=== PATIENT | female | born 1960 | race Caucasian/White ===

== ENCOUNTER → 2016-03-31 | Outpatient (CLI) | payer BC | END | disposition home or self-care (01) | LOC: C.PAPS 10:26 | PROVIDERS: ATTEND Obstetrics & Gynecology | DX: Z01.419 Encounter for gynecological examination (general) (routine) without abnormal findings (principal) ==

== ENCOUNTER → 2016-08-08 | Outpatient (CLI) | payer BC ==
--- NOTE | 2016-08-08 14:55 | MAMMOGRAPHY REPORT ---
BILATERAL DIGITAL SCREENING MAMMOGRAM TOMOSYNTHESIS WITH CAD: 08/08/2016 CLINICAL HISTORY: Routine screening. Patient has no complaints. TECHNIQUE: Breast tomosynthesis in addition to standard 2D mammography was performed. Current study was also evaluated with a Computer Aided Detection (CAD) system. COMPARISON: Comparison is made to exams dated: 08/05/2015 mammogram, 08/07/2014 ultrasound, 08/07/2014 mammogram, 07/30/2014 mammogram, 07/29/2013 mammogram, and 07/26/2012 mammogram - [facility] nter. BREAST COMPOSITION: The tissue of both breasts is heterogeneously dense, which may obscure small mas ses. FINDINGS: The parenchymal pattern is similar to prior mammograms. No developing mass, architectural distortion or cluster of suspicious microcalcifications is seen in either breast. IMPRESSION: ACR BI-RADS CATEGORY 2: BENIGN There is no mammographic evidence of malignancy. A 1 year screening mammogram is recommended. The pa tient will receive written notification of the results. Approximately 10% of breast cancers are not detected with mammography. A negative mammographic report should not delay biopsy if a clinically suggestive mass is present. Swetha Weiss M.D. ay/:08/08/2016 12:23:30 Production Team Member: Gina Issa, [facility] letter sent: Normal 1/2 BI-RADS Code: ACR BI-RADS Category 2: Benign
== END | disposition home or self-care (01) ==
LOC: C.MAMM 10:07
PROVIDERS: ATTEND Obstetrics & Gynecology
DX: Z12.31 Encounter for screening mammogram for malignant neoplasm of breast (principal)

== ENCOUNTER → 2017-03-03 | Outpatient (CLI) | payer OTHER ==
--- NOTE | 2017-03-03 08:15 | DIAGNOSTIC IMAGING REPORT ---
CALVARIUM 2 VIEWS CLINICAL HISTORY: MRI screening. Remote surgery. FINDINGS: AP and lateral views of the calvarium are obtained. No prior studies are available for comparison at the time of dictation. The skeletal structures are well mineralized. The calvarium appears intact. Numerous surgical clips are present along the right convexity. The bony orbits are grossly intact. Apparent nasal sinuses and mastoid air cells are clear as imaged. IMPRESSION: Numerous surgical clips are present along the right convexity. Electronically signed by: Erlin Carlisle M.D. 03/03/2017 8:14 AM Dictated Date/Time: 03/03/2017 8:13 AM
== END | disposition home or self-care (01) ==
LOC: C.MRI 07:38
PROVIDERS: ATTEND Physical Medicine & Rehabilitation Sports Medicine
DX: M25.562 Pain in left knee (principal)

== ENCOUNTER → 2017-03-10 | Outpatient (CLI) | payer OTHER | END | disposition home or self-care (01) | LOC: C.RAD 10:39 | DX: M25.562 Pain in left knee (principal) ==

== ENCOUNTER → 2017-03-30 | Day surgery (SDC) | payer OTHER ==
[2017-03-17 07:44] VITALS: Ht 152.4 cm; Wt 63.6 kg
[~2017-03-30] VITALS: Ht 152.4 cm; Wt 63.6 kg
[~2017-03-30] MED LIST: ATROPINE SULFATE 0.1 MG/ML 5ML SYR IV PRN; CALC600T9 PO; CEFAZOLIN 1000MG IV PUSH 7.5 ML IV SCH; DEXAMETHASONE SOD INJ 4 MG/ML VIAL ONE; EpHEDrine SULFATE INJ 50 MG/ML AMP IV PRN; FENTANYL CITRATE INJ 50 MCG/1 ML 2 ML VIAL ONE; HYDROCODONE/ACETAMIN 5/325MG TAB PO PRN; HYDROmorphone INJ 1 MG/ML SYR IV PRN; LACTATED RINGER'S 1000ML 1,000 ML IV SCH; LIDOCAINE HCL 2% 2 ML VIAL (20MG/ML) ONE; LIDOCAINE/EPINEPHRINE 1% INJ 50 ML VIAL ONE; MIDAZOLAM HCL 1 MG/ML 2ML VIAL ONE; ONDANSETRON INJ 2 MG/ML 2 ML VIAL IV PRN; ONDANSETRON INJ 2 MG/ML 2 ML VIAL ONE; PROMETHAZINE HCL INJ 12.5 MG in SODIUM CHLORIDE 0.9% 50ML 50 ML IV PRN; PROPOFOL IV EMULSION 10 MG/ML 20 ML VIAL IV ONE; SODIUM CHLORIDE 0.9% 1000ML 1,000 ML IV SCH; VITAMIN D PO
--- NOTE | 2017-03-30 10:10 | History & Physical Bridge Note ---
H&P Re-Evaluation Bridge Note: I have examined the patient, reviewed the History & Physical and in the interval since the performance of the History & Physical I have noted the following changes of clinical significance: No changes noted
--- NOTE | 2017-03-30 11:54 | [facility] Post Operative Brief Note ---
Immediate Operative Summary Operative Date Mar 30, 2017. Pre-Operative Diagnosis Left knee medial meniscus tear with medial compartment chondrosis Post-Operative Diagnosis Same as preop Procedure(s) Performed Left Knee Arthroscopy, Partial Medial Meniscectomy, Chondroplasty Surgeon Dr. Curran Barbed Wire Machine Operator Surgeon(s) Albin Goodson PA-C, adrienne ser ms3 Estimated Blood Loss 5 mL Findings Consistent with Post-Op Diagnosis Specimens None Drains None Anesthesia Type General Complication(s) none Disposition Accompanied Pt To Recovery: no Disposition: Recovery Room / PACU
--- NOTE | 2017-03-30 12:10 | [facility] Operative Report ---
Operative Report Operative Date Mar 30, 2017. Pre-Operative Diagnosis Left knee medial meniscus tear with medial compartment chondrosis Post-Operative Diagnosis Same as preop Procedure(s) Performed Left Knee Arthroscopy, Partial Medial Meniscectomy, Chondroplasty Surgeon Dr. Curran Bricklayer Paving Brick Surgeon(s) Albin Goodson PA-C, adrienne ser ms3 Estimated Blood Loss 5 mL Findings Medial meniscus tear. Medial compartment chondrosis. Specimens None Anesthesia laryngeal mask Complication(s) None Disposition Recovery Room / PACU Indications Patient's 56 her female with left medial knee pain refractory to nonsurgical methods of management. She cannot have an MRI. A CT scan suggests medial meniscal injury. X-rays are normal. Description of Procedure Informed consent was obtained. The patient identified as Rosy Watson. She identified the operative site as the left knee which I marked with my initials. A preoperative surgical timeout was performed. Appropriate dose of IV antibiotics was given. She was taken to the operating room positioned supine on the operating room table. The laryngeal mask anesthetic was administered. The examination under anesthesia revealed intact cruciate and collateral ligaments no swelling and full range of motion 2/0/130. A lateral post was used for stressing the knee. No tourniquet was applied. The leg was prepped and draped in usual sterile fashion. 1% lidocaine with epinephrine was injected into the fat pad portal sites and knee joint preoperatively. DVT prophylaxis intraoperatively with foot pumps. Postoperatively with early ambulation and aspirin. Inferolateral viewing portal superior lateral outflow portal and inferomedial working portals were established. Diagnostic arthroscopy was performed. The medial and lateral gutters trochlea and suprapatellar pouch were normal. There was fissuring and grade 1 softening median ridge of the patella otherwise negative. The retropatellar fat pad and ligamentum mucosum were resected. The lateral compartment was tight. Grade 1 chondrosis lateral tibial plateau. Lateral femoral condyle and Posterior lateral compartment normal. Cruciates normal. I could not gain access to the posterior medial compartment. Medial tibial plateau showed grade 1 changes. There was a radial tear in the body of the medial meniscus back to the meniscal capsular junction. This was addressed with basket forceps and motorized shaver back to a stable balanced and well comport rim the meniscal roots were intact. This debrided the meniscus back to the meniscal capsular junction. There was a large area of chondrosis grade 2-4 involving the medial femoral condyle from the distal extent of the patellofemoral articulation anterior aspect of the tibiofemoral articulation heading posteriorly. There were large flaps of unstable cartilage which were debrided. These were completely detached held only on the periphery. This revealed a area 12 cm of full-thickness chondral defect. Her fracture not indicated for multiple reasons including surrounding cartilage is abnormal absence of medial meniscus and age. The aureliano on through the knee to pickup loose debris. The instruments removed and the portals were closed with 4-0 nylon. A soft sterile dressing was applied. There were no specimens or call locations. Counts are correct in the case. Blood loss was minimal. At the conclusion operations both patient's informed of my findings in detail postoperative instructions were given. She will be rehabilitated according to the arthroscopic partial medial meniscectomy protocol. She may progress weightbearing as tolerated. I attest to the content of the Intraoperative Record and any orders documented therein. Any exceptions are noted below.
--- NOTE | 2017-03-30 12:16 | Medical Student: [facility] ---
Immediate Operative Summary Operative Date Mar 30, 2017. Pre-Operative Diagnosis Possible left medial meniscal tear Post-Operative Diagnosis Left medial meniscal tear, chondrosis of medial compartment of the L knee Procedure(s) Performed Arthroscopy, partial medial meniscectomy, and chondroplasty of the left knee Surgeon Dr. Curran Insurance Processing Clerk Surgeon(s) Albin Goodson PA-C, and Princess Dinero, MS3 Estimated Blood Loss 5cc Findings Consistent with post-op diagnosis Specimens No specimens were obtained. Drains None Anesthesia General Complication(s) None Disposition Recovery Room / PACU
--- NOTE | 2017-03-30 12:17 | Discharge Instructions-SurgCtr ---
Discharge Instructions Date of Service Mar 30, 2017. Visit Reason for Visit: Left Knee Medial Meniscus Tear Discharge Discharge Diagnosis / Problem: Left knee s/p arthroscopy, partial medial meniscectomy, and chondroplasty Discharge Goals Goal(s): Decrease discomfort, Improve function, Increase independence Activity Recommendations Activity Limitations: as noted below Lifting Limitations: gradually increase as tolerated Exercise/Sports Limitations: until after follow-up appointment Shower/Bathe: may shower/bathe in 3 days Driving or Machine Use: resume 3 days after discharge Weightbearing Status: Left weightbearing (as tolerated) Anesthesia . Post Anesthesia Instructions: If you have had General Anesthesia or IV Sedation: * Do not drive today. * Resume driving when surgeon permits. * Do not make important decisions or sign legal documents today. * Call surgeon for: 1. Temperature elevations greater than 101 degrees F. 2. Uncontrollable pain. 3. Excessive bleeding. 4. Persistent nausea and vomiting. 5. Medication intolerance (nausea, vomiting or rash). * For nausea and vomiting use only clear liquids such as: tea, soda, bouillon until nausea subsides, then gradually increase diet as tolerated. * If you have any concerns or questions, call your surgeon's office. If physician is unavailable and it is an emergency, call 911 or go to the nearest emergency room. . Instructions / Follow-Up Instructions / Follow-Up The following are instructions to follow after your Arthroscopic Knee Surgery. ACTIVITY RECOMMENDATIONS: * Minimize activity until your first visit after surgery. * No excessive walking, jogging, sports or laboring. * Return to activity is individualized. Most patients are able to return to every day activities within one month. * Return to sports or intensive labor usually occurs at 2-3 months. * Driving is not permitted until at least your first postoperative visit at a minimum. Please ask your doctor when it is safe to resume driving. If you have an automatic vehicle and your left leg has been operated on, then you may begin driving as soon as you are comfortable and can drive safely. SCHOOL/WORK RECOMMENDATIONS: * You may return to sedentary work when you are feeling more comfortable. This is usually 3-7 days after surgery. * Expect increased discomfort with increased activity. Continue to elevate and ice the leg as much as possible. MEDICATIONS: * You will have a prescription for pain medication and an anti-inflammatory medication after surgery. * Use the pain medication for severe pain and the anti-inflammatory for less severe pain. Once the pain medication has run out, try to use the anti-inflammatory medication. If this is not effective, contact the office for assistance. * The pain medication may cause nausea, constipation and drowsiness. You should see how they affect you before driving or similar activity. * The anti-inflammatory medication may cause stomach upset and bleeding. If this occurs let your doctor know immediately . * Take a stool softener like Colace or a laxative like Senokot to prevent constipation. DIET: * Resume previous diet. SPECIAL CARE: ICE: * You will need to use ice bags or gel packs. Do not apply ice directly to the skin. Use a thin dressing or julio shirt between the skin and ice bag. Apply ice for 20-30 minutes and repeat every 2-4 hours. This is especially important for the first 7-10 days after surgery. Once the pain improves, use ice as needed. ELEVATION: * Keep your leg elevated at or above the level of your heart as much as possible. * Expect some increased discomfort and swelling if you are standing for any length of time. * When lying down, avoid placing anything under your knee. Rather, prop your leg up by placing several pillows under your heel or calf. DRESSING: * Your dressing will be changed at your first therapy appointment approximately 4-5 days after surgery. Band-aids, tape strips or gauze may be applied. You may then change your dressing daily. * Reapply dressing followed by the Mak wrap or Tubi-bareback rider stockinet. * Always wash your hands prior to touching the incision area. * Once the stitches are removed, you may leave the wound open to air or cover with an Mak wrap or Tubi-bareback rider stockinet. * If you have been given a white elastic stocking (ROSENDO hose), wear as much as possible for the first 1-3 weeks depending on swelling. * Expect some bloody drainage for the first few days after surgery. * Leave the tape strips, if present, in place for 5-7 days. * Band-aids and gauze may be changed daily. CRUTCHES: * You will need to use crutches after surgery. * You may gradually progress to full weight bearing as tolerated and wean off the crutches unless otherwise advised. * Your therapist can provide assistance weaning off crutches. * Patients who have a microfracture done may need to be toe-touch weight- bearing for 4-6 weeks. BATHING: * You may shower or sponge-bathe immediately after surgery. * The dressing will need to be covered with a plastic bag or plastic wrap until the dressing is changed on the fourth or fifth day after surgery. * Once the dressing has been changed on the fourth or fifth day after surgery, you may shower and get the incision wet. * Wash with regular soap and water. * Do not bathe (submerge the incision), soak, swim or use a hot tub until the incision is completely healed over with normal skin and the doctor has given the OK to proceed. * There is no need to apply any ointments, powders or salves to your incision. * Do not apply alcohol or hydrogen peroxide directly to the incision. * Diluted peroxide (50:50 mixture with sterile saline) may be used to clean dried blood from around the incision area. BRACE: * Bracing is generally not needed after routine Arthroscopic Knee surgery. THERAPY: * You will begin therapy four or five days after surgery. * Organized therapy with the therapist is important for the first 4-6 weeks after surgery. During that time you will attend therapy 1-3 times per week. * You will also need to do daily exercises for range of motion and strength as instructed. PROBLEMS/QUESTIONS: * If you have any problems such as severe pain, numbness, tingling or high fevers or if you have any questions, please contact the office at [phone]. * It is not uncommon to have some numbness and tingling after the surgery especially if you have had a nerve block done. This should gradually improve over the first 1- 2 days. If this persists longer or worsens please contact the office. FOLLOW UP VISIT: * If not already scheduled, please call the office at to schedule a follow-up appointment for 10 days, 6 weeks and 3 months after surgery. Diet Recommendations Home Diet: resume previous diet Procedures Procedures Performed: Left Knee Arthroscopy, Partial Medial Meniscectomy, Chondroplasty Pending Studies Studies pending at discharge: no Medical Emergencies . Who to Call and When: Medical Emergencies: If at any time you feel your situation is an emergency, please call 911 immediately. . Non-Emergent Contact Non-Emergency issues call your: Primary Care Provider, Surgeon Call Non-Emergent contact if: temperature is above 101, wound has increased drainage, wound has increased redness, wound has increased pain, you have any medication questions . . "Provider Documentation" section prepared by Albin Goodson PA-C. . [place] Drug Monitoring Program Search Results: no issues identified
[2017-03-30] MEDS: FENTANYL CITRATE INJ 50 MCG/1 ML 2 ML VIAL IV PRN ×3 (12:20→12:33)
--- NOTE | 2017-03-30 12:32 | [facility] Operative Report ---
Operative Report Operative Date Mar 30, 2017. Pre-Operative Diagnosis Left knee medial meniscus tear with medial compartment chondrosis Post-Operative Diagnosis Left knee same as preop Procedure(s) Performed Left Knee Arthroscopy, Partial Medial Meniscectomy, Chondroplasty Surgeon Dr. Curran Inspector Machine Cut Glass Surgeon(s) Albin Goodson PA-C, adrienne ser ms3 Estimated Blood Loss 5 mL Findings left knee medial meniscal tear, chondral injury medial femoral condyle Specimens None Drains None Anesthesia Type General Complication(s) none Disposition no Recovery Room / PACU Indications This 56-year-old white female presented the office with complaints of left knee pain. She had tried conservative care measures without improvement. Patient elected to proceed with surgical intervention after being educated about potential risks and outcomes. Preoperative imaging was obtained. Description of Procedure Patient was taken to the operating room where she was given local anesthesia and general anesthesia. She was prepped and draped in usual sterile fashion. Please see Dr. Curran's operative report for specifics of the procedure. I was present for the entire case from initial patient positioning through final wound closure. Assistance was provided in patient positioning, arthroscopy, and final wound closure. Patient was taken to the recovery room in satisfactory condition. I attest to the content of the Intraoperative Record and any orders documented therein. Any exceptions are noted below.
[2017-03-30 12:54] VITALS: TEMP 36.4
--- NOTE | 2017-03-30 13:19 | Anesthesia Progress Nt - [facility] ---
Anesthesia Post Op Note Date & Time Mar 30, 2017 at 13:19 Vital Signs Pain Intensity: 0.0 Vital Signs Past 12 Hours Date Time Temp Pulse Resp B/P (MAP) Pulse Ox O2 Delivery O2 Flow Rate FiO2 03/30/17 12:54 36.4 87 18 154/86 (108) 94 Room Air 03/30/17 12:47 154/90 03/30/17 12:46 82 11 93 03/30/17 12:46 78 11 03/30/17 12:45 161/102 03/30/17 12:45 161/102 03/30/17 12:44 87 16 94 03/30/17 12:44 87 16 94 03/30/17 12:44 87 16 03/30/17 12:44 87 16 03/30/17 12:41 36.5 97 Room Air 03/30/17 12:40 165/100 03/30/17 12:40 165/100 03/30/17 12:39 95 16 03/30/17 12:39 97 16 99 03/30/17 12:39 95 16 03/30/17 12:39 97 16 99 03/30/17 12:38 155/88 03/30/17 12:37 67 14 100 03/30/17 12:37 72 14 03/30/17 12:35 154/100 03/30/17 12:32 85 19 03/30/17 12:32 83 19 100 03/30/17 12:30 149/93 03/30/17 12:27 68 16 03/30/17 12:27 67 16 100 03/30/17 12:26 157/91 03/30/17 12:22 74 18 03/30/17 12:22 73 18 100 03/30/17 12:20 167/78 03/30/17 12:17 81 12 03/30/17 12:17 82 12 100 03/30/17 12:16 81 17 03/30/17 12:16 83 17 100 03/30/17 12:15 146/92 03/30/17 12:11 80 22 100 03/30/17 12:11 79 22 03/30/17 12:10 153/90 03/30/17 12:08 139/86 03/30/17 12:07 130/101 03/30/17 12:06 36.3 95 16 139/86 100 Mask 7 03/30/17 09:26 36.6 78 16 148/84 (105) 99 Room Air Notes Mental Status: alert / awake / arousable, participated in evaluation Pt Amnestic to Procedure: Yes Nausea / Vomiting: adequately controlled Pain: adequately controlled Airway Patency, RR, SpO2: stable & adequate BP & HR: stable & adequate Hydration State: stable & adequate Anesthetic Complications: no major complications apparent
[2017-03-30 13:22] VITALS: BP 155/89; PULSE 88; O2SAT 95
--- NOTE | 2017-04-03 07:39 | EDITING REQUIRED CODING QUERY ---
MENISCUS TEAR To promote full compliance with coding requirements relating to patient care physician participation is requested in all cases of medical billing coder uncertainty. Please assist us with the question(s) below: Please specify the type of Meniscus Tear by placing an "X" within the parenthesis (). If other please document type. ( x) Current Injury ( ) Old Injury ( ) Other: (Please Specify) Thank you Catherine Bonilla
== END | disposition home or self-care (01) ==
LOC: X.SURG 09:11
PROVIDERS: ATTEND Physical Medicine & Rehabilitation Sports Medicine
DX: S83.242A Other tear of medial meniscus, current injury, left knee, initial encounter (principal); X58.XXXA Exposure to other specified factors, initial encounter; Z98.890 Other specified postprocedural states

== ENCOUNTER → 2017-04-20 | Outpatient (CLI) | payer OTHER ==
[~2017-04-20] MED LIST changes: -ATROPINE SULFATE 0.1 MG/ML 5ML SYR IV PRN; -CEFAZOLIN 1000MG IV PUSH 7.5 ML IV SCH; -DEXAMETHASONE SOD INJ 4 MG/ML VIAL ONE; -EpHEDrine SULFATE INJ 50 MG/ML AMP IV PRN; -FENTANYL CITRATE INJ 50 MCG/1 ML 2 ML VIAL ONE; -HYDROCODONE/ACETAMIN 5/325MG TAB PO PRN; -HYDROmorphone INJ 1 MG/ML SYR IV PRN; -LACTATED RINGER'S 1000ML 1,000 ML IV SCH; -LIDOCAINE HCL 2% 2 ML VIAL (20MG/ML) ONE; -LIDOCAINE/EPINEPHRINE 1% INJ 50 ML VIAL ONE; -MIDAZOLAM HCL 1 MG/ML 2ML VIAL ONE; -ONDANSETRON INJ 2 MG/ML 2 ML VIAL IV PRN; -ONDANSETRON INJ 2 MG/ML 2 ML VIAL ONE; -PROMETHAZINE HCL INJ 12.5 MG in SODIUM CHLORIDE 0.9% 50ML 50 ML IV PRN; -PROPOFOL IV EMULSION 10 MG/ML 20 ML VIAL IV ONE; -SODIUM CHLORIDE 0.9% 1000ML 1,000 ML IV SCH
== END | disposition home or self-care (01) ==
LOC: C.PAPS 09:19
PROVIDERS: ATTEND Obstetrics & Gynecology
DX: Z12.4 Encounter for screening for malignant neoplasm of cervix (principal)